=== PATIENT | male | born 1960 | race Hispanic/Latino ===

== ENCOUNTER 2017-04-16 19:14 | Emergency (ER) | payer OTHER ==
[2017-04-16 19:18] VITALS: BMI 32.5
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
[2017-04-16 22:17] VITALS: BP 141/81; PULSE 81; RESP 18; TEMP 97.9; O2SAT 97
--- NOTE | 2017-04-17 10:02 | RAD ---
PROCEDURE: Radiographs of the Right Shoulder HISTORY: shoulder pain COMPARISON: No prior. FINDINGS: BONES: No evidence of acute displaced fracture nor dislocation. 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 . SOFT TISSUES: Normal. OTHER FINDINGS: None. IMPRESSION: No evidence of acute fracture nor dislocation. DJD right acromioclavicular joint.
== END 2017-04-16 22:22 | disposition home or self-care (01) ==
LOC: ED 19:14
DX: M25.511 Pain in right shoulder (principal)
CPT/HCPCS: 73030; 96372; 99283; J1885

== ENCOUNTER 2017-04-19 12:56 | Emergency (ER) | payer OTHER ==
[2017-04-19 13:39] VITALS: RESP 18; TEMP 98; O2SAT 97; BMI 36.5
--- NOTE | 2017-04-19 13:45 | ED PDOC ---
Arrival/HPI <Enrique Angulo - Last Filed: 04/19/17 15:38> - General Historian: Patient <Deng Polanco - Last Filed: 04/19/17 15:51> - General Chief Complaint: Chest Pain Time Seen by Provider: 04/19/17 13:28 - History of Present Illness Narrative History of Present Illness (Text): 04/19/17 13:42 This patient is a 56yo M w/ no siginificant PMhx because he has no PMD; recently seen for shoulder sprain and discharged from the ER; is coming in with left sided chest pain for 2 days now. patient states that he just "feels off" since the pain started. Pain is located mid-axillary line, in a single point, and does not radiate anywhere. Denies nausea vomiting sweating or feeling of impending doom. 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 Denies any drug use, smoking, "eats very healthy and eats lots of fish". Denies VALENCIA, SOB, abdominal pain, N/V/D, dysuria/freq/urg, lower extremity swelling, decreased exercise tolerance. Admits to left sided chest pain, dull, non radiating. No PMD SurgHx: Previous Abdominal hernia repair in [place] Allergies: None Meds: Ibuprofen as needed for pain, no others FamHx: Mom 71 of cardiac issues; only child, all other aunts/uncles in good health States he is taking valium for "muscle spasms" as well. 04/19/17 13:47 (Enrique Angulo) Past Medical History - Infectious Disease Hx of Infectious Diseases: None - Tetanus Immunization Tetanus Immunization: Up to Date - Past Medical History Past Medical History: No Previous - Cardiac Hx Cardiac Disorders: No - Pulmonary Hx Respiratory Disorders: No - HEENT Hx HEENT Disorder: No - Renal Hx Renal Disorder: No - Endocrine/Metabolic Hx Endocrine Disorders: No - Hematological/Oncological Hx Blood Disorders: No - Integumentary Hx Dermatological Disorder: No - Musculoskeletal/Rheumatological Hx Musculoskeletal Disorders: Yes Other/Comment: bursitis - Psychiatric Hx Depression: No Hx Emotional Abuse: No Hx Physical Abuse: No Hx Substance Use: No - Past Surgical History Past Surgical History: No Previous - Anesthesia Hx Anesthesia: Yes Hx Anesthesia Reactions: No Hx Malignant Hyperthermia: No - Suicidal Assessment Feels Threatened In Home Enviroment: No <Enrique Angulo - Last Filed: 04/19/17 15:38> - Provider Review Nursing Documentation Reviewed: Yes <SherriDeng - Last Filed: 04/19/17 15:51> Family/Social History - Physician Review Nursing Documentation Reviewed: Yes Family/Social History: No Known Family HX Smoking Status: Never Smoked Hx Alcohol Use: Yes (wine) Hx Substance Use: No <Enrique Angulo - Last Filed: 04/19/17 15:38> - Physician Review Nursing Documentation Reviewed: Yes <SherriDeng - Last Filed: 04/19/17 15:51> Allergies/Home Meds <WalterSadiqhallieEnrique - Last Filed: 04/19/17 15:38> <SherriDeng - Last Filed: 04/19/17 15:51> Allergies/Adverse Reactions: Allergies Sulfa (Sulfonamide Antibiotics) Adverse Reaction (Verified 04/19/17 13:38) ANAPHYLAXIS Review of Systems - Review of Systems Constitutional: absent: Fatigue, Weight Change Eyes: absent: Vision Changes, Photophobia ENT: absent: Hearing Changes Respiratory: absent: SOB Cardiovascular: absent: Chest Pain Gastrointestinal: absent: Abdominal Pain Genitourinary Male: absent: Dysuria Musculoskeletal: absent: Arthralgias Skin: absent: Rash Neurological: absent: Headache Endocrine: absent: Diaphoresis, Polyuria Hemo/Lymphatic: absent: Adenopathy Psychiatric: absent: Anxiety <Enrique Angulo - Last Filed: 04/19/17 15:38> Physical Exam Temperature: Afebrile Blood Pressure: Hypertensive Pulse: Regular Respiratory Rate: Normal Appearance: Positive for: Well-Appearing, Non-Toxic, Comfortable Pain Distress: None Mental Status: Positive for: Alert and Oriented X 3 - Systems Exam Head: Present: Atraumatic Pupils: Present: PERRL Extroacular Muscles: Present: EOMI Conjunctiva: Present: Normal Mouth: Present: Moist Mucous Membranes Neck: Present: Normal Range of Motion Respiratory/Chest: Present: Clear to Auscultation, Good Air Exchange, Tender to Palpation (on the left axillary line ). No: Respiratory Distress, Accessory Muscle Use, Wheezes, Decreased Breath Sounds, Rales, Retracting, Rhonchi, Tachypneic Cardiovascular: Present: Regular Rate and Rhythm, Normal S1, S2. No: Murmurs Abdomen: Present: Normal Bowel Sounds. No: Tenderness, Distention Upper Extremity: Present: Normal Inspection. No: Cyanosis (patients right arm has limited ROM due to tendonitis) Lower Extremity: Present: Normal Inspection. No: Edema Neurological: Present: GCS=15, CN II-XII Intact, Speech Normal Skin: Present: Warm <Enrique Angulo - Last Filed: 04/19/17 15:38> Vital Signs Reviewed: Yes <Deng Polanco - Last Filed: 04/19/17 15:51> Vital Signs Temp Pulse Resp BP Pulse Ox 04/19/17 13:26 98 F 70 18 139/78 97 Medical Decision Making - Lab Interpretations I have reviewed the lab results: Yes <Enrique Angulo - Last Filed: 04/19/17 15:38> - Lab Interpretations I have reviewed the lab results: Yes - RAD Interpretation Projection Technician: Radiologist - EKG Interpretation Interpreted by ED Physician: Yes Type: 12 lead EKG <Deng Polanco - Last Filed: 04/19/17 15:51> ED Course and Treatment: 04/19/17 13:44 Most likely has HTN; hypertensive on previous visit and today as well Will order cardiac iso and labs, chest x-ray Aspirin 325 ordered and Nitro; will reassess after nitro EKG NSR w/ left atrial enlargement; no ST segment elevations/depressions, no T wave abnormalities DDx: ACS vs muscle sprain/spasm 04/19/17 14:34 patient is requesting valium for his muscle spasm as this seems to help him will order toradol for likely muscle spasm in the chest troponin negative CBC CMP WNL Patient is comfortably sitting in bed, ambulating without problem 04/19/17 14:52 Cardiac ezymes are normal patient continues to request valium for his muscle spasm The patient is stable for discharge he will be d/c on baclofen for muscle spasm, already has ibuprofen which he can take as indicated for muscle spasm advised to be careful with ibuprofen given risk of cardiac events and GI bleeding patient acknowledged risks and benefits of treatment Pt advised to come back to the ER for any worsening chest pain, extreme SOB. Encouraged to set up PCP here at the [facility] clinic as he does not have insurance currently. (Enrique Angulo) 04/19/17 14:49 Patient seen and examined with resident. He describes the pain as lasting for one second about 4 times in the past 3 days, not associated with exertion. EKG is normal with normal CE and CXR. As noted by resident, patient asking for valium script - will be given baclofen for muscle relaxation. Given negative workup in the ED, it has been explained to the patient the crucial need to follow up outpatient, which he says he will do - ok for d/c. (Deng Polanco) - Lab Interpretations Lab Results: 04/19/17 13:35 04/19/17 13:35 Lab Results 04/19/17 13:35: Sodium 141, Potassium 3.9, Chloride 107, Carbon Dioxide 26, Anion Gap 12, BUN 20, Creatinine 0.7, Est GFR ( Amer) > 60, Est GFR (Non- Af Amer) > 60, Random Glucose 91, Calcium 8.7, Phosphorus 2.6, Magnesium 2.1, Total Bilirubin 0.6, AST 25, ALT 27, Alkaline Phosphatase 63, Lactate Dehydrogenase 410, Total Creatine Kinase 112, Troponin I < 0.01, Total Protein 7.1, Albumin 3.9, Globulin 3.2, Albumin/Globulin Ratio 1.2, Lipase 43 04/19/17 13:35: WBC 6.2, RBC 4.39, Hgb 13.1 L, Hct 39.4 L, MCV 89.7, MCH 29.8, MCHC 33.2, RDW 13.0, Plt Count 221, MPV 10.0, Gran % 62.5, Lymph % (Auto) 28.3, [place] % (Auto) 7.4 H, Eos % (Auto) 1.5, Baso % (Auto) 0.3, Gran # 3.86, Lymph # 1.8, [place] # 0.5, Eos # 0.1, Baso # 0.02 - RAD Interpretation Radiology Orders: 04/19/17 13:45 CHEST PORTABLE [RAD] Stat - Medication Orders Current Medication Orders: Discontinued Medications Aspirin (Aspirin) 325 mg PO STAT STA Stop: 04/19/17 13:42 Last Admin: 04/19/17 13:47 Dose: 325 mg Ketorolac Tromethamine (Toradol) 30 mg IVP STAT STA Stop: 04/19/17 15:35 Nitroglycerin (Nitrostat Sl Tab) 0.3 mg SL STAT STA Stop: 04/19/17 13:42 Last Admin: 04/19/17 13:48 Dose: 0.3 mg <Enrique Angulo - Last Filed: 04/19/17 15:38> - PA / [employer]LE [employer]KER / Resident Statement MD/ has reviewed & agrees with the documentation as recorded. MD/DO has examined the patient and agrees with the treatment plan. - Scribe Statement The provider has reviewed the documentation as recorded by the Scribe <Deng Polanco - Last Filed: 04/19/17 15:51> - Scribe Statement 04/19/2017 Tracy Barton Provider Scribe Attestation: All medical record entries made by the Scribe were at my direction and personally dictated by me. I have reviewed the chart and agree that the record accurately reflects my personal performance of the history, physical exam, medical decision making, and the department course for this patient. I have also personally directed, reviewed, and agree with the discharge instructions and disposition. (Deng Polanco) Disposition/Present on Arrival - Present on Arrival Any Indicators Present on Arrival: No History of DVT/PE: No History of Uncontrolled Diabetes: No Urinary Catheter: No History of Decub. Ulcer: No History Surgical Site Infection Following: None - Disposition Have Diagnosis and Disposition been Completed?: Yes Disposition Time: 14:56 Patient Plan: Discharge <Enrique Angulo - Last Filed: 04/19/17 15:38> <Deng Polanco - Last Filed: 04/19/17 15:51> - Disposition Diagnosis: Muscle spasm Disposition: HOME/ ROUTINE Patient Problems: Current Active Problems Problem Status Onset Muscle spasm Acute Condition: FAIR Discharge Instructions (ExitCare): Muscle Spasm (ED) Prescriptions: Baclofen [Lioresal] 10 mg PO BID PRN #16 tab PRN Reason: Spasm Referrals: PCP,NO [Primary Care Provider] - Follow up with primary
[2017-04-19 14:16] LABS: ALB/GLOB RATIO 1.2 (1.1-1.8); ALBUMIN 3.9 g/dL (3.0-4.8); ALT/SGPT 27 U/L (7-56); AST/SGOT 25 U/L (15-59); BLOOD UREA NITROGEN 20 mg/dL (7-21); CALCIUM 8.7 mg/dL (8.4-10.5); GFR AFRICAN-AMERICAN > 60; GFR NON-AFRICAN AMERICAN > 60; LIPASE 43 U/L (23-300); MAGNESIUM 2.1 mg/dL (1.7-2.2)
[2017-04-19 14:20] LABS: BASO # 0.02 K/mm3 (0.0-2.0); BASO % 0.3 % (0.0-3.0); EOS # 0.1 (0.0-0.7); EOS % 1.5 % (1.5-5.0); GRAN # 3.86 (1.4-6.5); GRAN % 62.5 % (50.0-68.0); HEMOGLOBIN 13.1 gm/dL (14.0-18.0); LYMPH # 1.8 (1.2-3.4); LYMPH % 28.3 % (22.0-35.0); MEAN CELL VOLUME 89.7 fL (80.0-105.0); MEAN CORPUSCULAR HEMOGLOBIN 29.8 pg (25.0-35.0); MEAN CORPUSCULAR HGB CONC 33.2 g/dl (31.0-37.0); MONO # 0.5 (0.1-0.6); MONO % 7.4 % (1.0-6.0); PLATELET COUNT 221 10^3/uL (120.0-450.0); RBC 4.39 10^6/uL (3.5-6.1); WHITE BLOOD COUNT 6.2 10^3/ul (4.5-11.0)
[2017-04-19 14:29] LABS: TROPONIN I < 0.01 ng/mL
--- NOTE | 2017-04-19 14:35 | RAD ---
HISTORY: chest pain COMPARISON: No prior. FINDINGS: LUNGS: No active pulmonary disease. PLEURA: No significant pleural effusion identified, no pneumothorax apparent. CARDIOVASCULAR: Normal. OSSEOUS STRUCTURES: No significant abnormalities. VISUALIZED UPPER ABDOMEN: Normal. OTHER FINDINGS: None. IMPRESSION: No active disease.
[2017-04-19 16:19] VITALS: BP 136/88; PULSE 62
--- NOTE | 2017-04-19 19:00 | CARD ---
APPROVED REPORT EKG Measurement Heart [id number] CT [id number] <Conclusion> Normal sinus rhythm Possible Left atrial enlargement Borderline ECG
== END 2017-04-19 16:30 | disposition home or self-care (01) ==
LOC: ED 12:56
DX: R25.2 Cramp and spasm (principal)
CPT/HCPCS: 71010; 80053; 82550; 83615; 83690; 83735; 84100; 84484; 85025; 93005; 96374; 99285; J1885

== ENCOUNTER 2017-10-20 13:41 | Emergency (ER) | payer MEDICAID ==
[2017-10-20 13:41] VITALS: BMI 36.5
--- NOTE | 2017-10-20 14:15 | ED PDOC ---
Arrival/HPI - General Chief Complaint: Upper Extremity Problem/Injury Time Seen by Provider: 10/20/17 14:04 Historian: Patient - History of Present Illness Narrative History of Present Illness (Text): 10/20/17 14:11 A 56 year old male, whose past medical history includes hypertension and tendonitis, presents to the emergency department complaining of right shoulder pain since earlier today. Patient reports his pain began after doing some heavy lifting at work. He also reports palpitations, which have now fully resolved. Patient denies any other injuries, fever, chills, nausea, vomiting, abdominal pain, chest pain, shortness of breath or any other complaints. Time/Duration: Other (earlier today) Context: Work Past Medical History - Provider Review Nursing Documentation Reviewed: Yes - Infectious Disease Hx of Infectious Diseases: None - Tetanus Immunization Tetanus Immunization: Up to Date - Past Medical History Past Medical History: No Previous - Cardiac Hx Cardiac Disorders: No - Pulmonary Hx Respiratory Disorders: No - HEENT Hx HEENT Disorder: No - Renal Hx Renal Disorder: No - Endocrine/Metabolic Hx Endocrine Disorders: No - Hematological/Oncological Hx Blood Disorders: No - Integumentary Hx Dermatological Disorder: No - Musculoskeletal/Rheumatological Hx Musculoskeletal Disorders: Yes Other/Comment: bursitis - Psychiatric Hx Depression: No Hx Substance Use: No - Past Surgical History Past Surgical History: No Previous - Anesthesia Hx Anesthesia: Yes Hx Anesthesia Reactions: No Hx Malignant Hyperthermia: No - Suicidal Assessment Feels Threatened In Home Enviroment: No Family/Social History - Physician Review Nursing Documentation Reviewed: Yes Family/Social History: No Known Family HX Smoking Status: Never Smoked Hx Alcohol Use: Yes (wine) Hx Substance Use: No Allergies/Home Meds Allergies/Adverse Reactions: Allergies Sulfa (Sulfonamide Antibiotics) Adverse Reaction (Verified 10/03/17 13:52) ANAPHYLAXIS Home Medications: Home Meds Medication Instructions Recorded Confirmed Irbesartan [Avapro] 0 mg PO DAILY 10/20/17 10/20/17 Lisinopril [Zestril] 10 mg PO DAILY 10/20/17 10/20/17 Review of Systems - Physician Review All systems were reviewed & negative as marked: Yes - Review of Systems Constitutional: absent: Fevers, Night Sweats Respiratory: absent: SOB Cardiovascular: Palpitations (which has completely resolved). absent: Chest Pain Gastrointestinal: absent: Abdominal Pain, Nausea, Vomiting Musculoskeletal: Other (right shouler pain) Physical Exam Vital Signs Reviewed: Yes Vital Signs Temp Pulse Resp BP Pulse Ox 10/20/17 14:43 98.1 F 10/20/17 14:38 69 16 152/83 H 99 10/20/17 13:47 97.8 F 72 18 131/82 98 Temperature: Afebrile Blood Pressure: Normal Pulse: Regular Respiratory Rate: Normal Appearance: Positive for: Well-Appearing, Non-Toxic, Comfortable Pain Distress: None Mental Status: Positive for: Alert and Oriented X 3 - Systems Exam Head: Present: Atraumatic, Normocephalic Pupils: Present: PERRL Extroacular Muscles: Present: EOMI Conjunctiva: Present: Normal Mouth: Present: Moist Mucous Membranes Respiratory/Chest: Present: Clear to Auscultation, Good Air Exchange. No: Respiratory Distress, Accessory Muscle Use Cardiovascular: Present: Regular Rate and Rhythm, Normal S1, S2. No: Murmurs Upper Extremity: Present: Normal Inspection, Normal ROM (in right shoulder), NORMAL PULSES, Neurovascularly Intact. No: Cyanosis, Edema, Tenderness (in right shoulder), Swelling, Erythema, Temperature Abnormalties, Deformity Neurological: Present: GCS=15, CN II-XII Intact, Speech Normal Skin: Present: Warm, Dry, Normal Color. No: Rashes Psychiatric: Present: Alert, Oriented x 3, Normal Insight, Normal Concentration Medical Decision Making ED Course and Treatment: 10/20/17 14:11 Impression: A 56 year old male with right shoulder pain. Patient notes palpitations, which have now fully resolved. Plan: -- EKG -- Reassess and disposition Progress Notes: EKG shows NSR at [address]/T wave changes. Interpreted by me. 10/20/17 14:36 I have discussed the results and plan with the patient, who expresses understanding. Patient in agreement with plan to be discharged home. Patient is stable for discharge. Patient was instructed to follow up with physician or return if symptoms worsen or new concerning symptoms arise. 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 - Scribe Statement The provider has reviewed the documentation as recorded by the Ellaibe Madhavi Jones Provider Scribe Attestation: All medical record entries made by the Scribe were at my direction and personally dictated by me. I have reviewed the chart and agree that the record accurately reflects my personal performance of the history, physical exam, medical decision making, and the department course for this patient. I have also personally directed, reviewed, and agree with the discharge instructions and disposition. Disposition/Present on Arrival - Present on Arrival Any Indicators Present on Arrival: No History of DVT/PE: No History of Uncontrolled Diabetes: No Urinary Catheter: No History of Decub. Ulcer: No History Surgical Site Infection Following: None - Disposition Have Diagnosis and Disposition been Completed?: Yes Diagnosis: Trapezius muscle strain, Trapezius muscle spasm Disposition: HOME/ ROUTINE Disposition Time: 14:36 Patient Plan: Discharge Condition: GOOD Discharge Instructions (ExitCare): Muscle Spasm (ED) Additional Instructions: Ernst, Rest as much as possible. Ice the muscle spasm. Use the valium, but do not drink, drive, or work if you take the valium. Jeremiah- Dr. Paul Chiu Prescriptions: Diazepam [Valium] 2 mg PO TID #15 tablet Forms: [employer] (Kinyarwanda)
[2017-10-20 14:42] VITALS: BP 152/83; PULSE 69; RESP 16; O2SAT 99
[2017-10-20 14:43] VITALS: TEMP 98.1
--- NOTE | 2017-10-22 10:33 | CARD ---
APPROVED REPORT EKG Measurement Heart [id number] <Conclusion> Normal sinus rhythm Normal ECG
== END 2017-10-20 14:51 | disposition home or self-care (01) ==
LOC: ED 13:41
DX: S46.911A Strain of unspecified muscle, fascia and tendon at shoulder and upper arm level, right arm, initial encounter (principal); X50.0XXA Overexertion from strenuous movement or load, initial encounter; Y99.0 Civilian activity done for income or pay; I10 Essential (primary) hypertension

== ENCOUNTER 2017-12-16 16:38 | Emergency (ER) | payer MEDICAID, OTHER ==
[2017-12-16 17:18] VITALS: BP 144/84; PULSE 70; RESP 19; TEMP 98.1; O2SAT 98; BMI 33.9
--- NOTE | 2017-12-16 17:45 | ED PDOC ---
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 ago while at work, there were lots of dust everywhere, pt was wearing an eyeglass but something went into his left eye and felt very irritated since then; slightly teary/non-bleeding/no discharge; pt states no blurry/vision changes; no fever/chills/sweats, no cp/sob/palpitations , no abd pain, no n/v, no numbness/tingling, no urinary/bowel changes, no fall/ trauma/sick contact, no travel; pt is here for further eval; pt's without other complaints pt denied headaches Time/Duration: < week (3 days ago) Symptom Onset: Sudden Symptom Course: Unchanged Severity Level: 5 Activities at Onset: Rest Context: Home, Work Past Medical History - Provider Review Nursing Documentation Reviewed: Yes - Travel History Have you recently traveled outside [place] w/in the past 3 mons?: No - Past History Past History: No Previous - Infectious Disease Hx of Infectious Diseases: None - Tetanus Immunization Tetanus Immunization: Up to Date - Past Medical History Past Medical History: No Previous - Cardiac Hx Cardiac Disorders: No - Pulmonary Hx Respiratory Disorders: No - HEENT Hx HEENT Disorder: No - Renal Hx Renal Disorder: No - Endocrine/Metabolic Hx Endocrine Disorders: No - Hematological/Oncological Hx Blood Disorders: No - Integumentary Hx Dermatological Disorder: No - Musculoskeletal/Rheumatological Hx Musculoskeletal Disorders: Yes Other/Comment: bursitis - Psychiatric Hx Depression: No Hx Substance Use: No - Past Surgical History Past Surgical History: No Previous - Anesthesia Hx Anesthesia: Yes Hx Anesthesia Reactions: No Hx Malignant Hyperthermia: No - Suicidal Assessment Feels Threatened In Home Enviroment: No Family/Social History - Physician Review Nursing Documentation Reviewed: Yes Family/Social History: No Known Family HX Smoking Status: Never Smoked Hx Alcohol Use: Yes (wine) Hx Substance Use: No Hx Substance Use Treatment: No Allergies/Home Meds Allergies/Adverse Reactions: Allergies Sulfa (Sulfonamide Antibiotics) Adverse Reaction (Verified 12/16/17 17:07) ANAPHYLAXIS Home Medications: Home Meds Medication Instructions Recorded Confirmed Irbesartan [Avapro] 0 mg PO DAILY 10/20/17 12/16/17 Lisinopril [Zestril] 10 mg PO DAILY 10/20/17 12/16/17 Enalapril Maleate [Vasotec] 10 mg DAILY 10/25/17 12/16/17 Review of Systems - Review of Systems Constitutional: Normal Eyes: Eye Pain. absent: Vision Changes, Photophobia ENT: Normal Respiratory: Normal Cardiovascular: Normal Gastrointestinal: Normal Genitourinary Male: Normal Musculoskeletal: Normal Skin: Normal Neurological: Normal Endocrine: Normal Hemo/Lymphatic: Normal Psychiatric: Normal Physical Exam Vital Signs Reviewed: Yes Vital Signs Temp Pulse Resp BP Pulse Ox 12/16/17 17:08 98.1 F 70 19 144/84 98 12/16/17 17:06 98.1 F 70 18 144/84 97 Temperature: Afebrile Blood Pressure: Hypertensive (borderline) Pulse: Regular Respiratory Rate: Normal Appearance: Positive for: Well-Appearing, Non-Toxic, Uncomfortable Pain Distress: None Mental Status: Positive for: Alert and Oriented X 3 - Systems Exam Head: Present: Atraumatic, Normocephalic Pupils: Present: PERRL, Other (no nystagmus, no photophobia, sclera anicteric/ not injected, no gross tearing/discharge/bleeding noted; no masses/FB noted; Fundoscopic exam: WNL, no acute papilledema; Fluroescin stain: NO UPTAKE is noted b/l; pt is wearing eyeglasses Visual acuity (L 20/25, R 20/25, both 20/25) ; visual field intact b/l) Extroacular Muscles: Present: EOMI Conjunctiva: Present: Normal Ears: Present: Normal Mouth: Present: Moist Mucous Membranes, Other (intact dentitions, no drooling/ stridor, no dysphonia) Pharnyx: Present: Normal, Other (uvula/tongue are midline) Nose (External): Present: Atraumatic Nose (Internal): Present: Normal Inspection Neck: Present: Normal Range of Motion, Trachea Midline, Other (no midline tenderness, no step off, no meningeal signs). No: MIDLINE TENDERNESS Respiratory/Chest: Present: Clear to Auscultation, Good Air Exchange. No: Respiratory Distress Cardiovascular: Present: Regular Rate and Rhythm, Normal S1, S2. No: Murmurs Abdomen: Present: Normal Bowel Sounds, Other (well nourished male) Back: Present: Normal Inspection. No: Midline Tenderness Upper Extremity: Present: Normal Inspection, Normal ROM, NORMAL PULSES, Neurovascularly Intact, Capillary Refill < 2s Lower Extremity: Present: Normal Inspection, NORMAL PULSES, Normal ROM, Neurovascularly Intact, Capillary Refill < 2 s Neurological: Present: GCS=15, CN II-XII Intact, Speech Normal Skin: Present: Warm, Normal Color Psychiatric: Present: Alert, Oriented x 3 Medical Decision Making ED Course and Treatment: 12/16/17 17:43 Impression: left eye pain/irritation x 3 days i have consider all the differential diagnosis regarding pt's chief medical complaints/clinical findings, including but are not limited to: left eye pain A/P: left eye pain - visual acuity - observe - supportive care 12/16/17 18:00 pt felt improved pt is made aware of his medical results pt is encouraged wearing eye protective gear when at work pt will f/u as directed pt will be discharged home Re-evaluation Time: 18:00 Reassessment Condition: Improved Disposition/Present on Arrival - Present on Arrival Any Indicators Present on Arrival: No History of DVT/PE: No History of Uncontrolled Diabetes: No Urinary Catheter: No History of Decub. Ulcer: No History Surgical Site Infection Following: None - Disposition Have Diagnosis and Disposition been Completed?: Yes Diagnosis: Left eye pain Disposition: HOME/ ROUTINE Disposition Time: 18:00 Patient Plan: Discharge Condition: STABLE Discharge Instructions (ExitCare): Artificial Tears Print Language: CITIZEN OF [place] Additional Instructions: Make sure to see your doctor in 1-2 days DRINK PLENTY OF FLUIDS MAKE SURE TO WEAR safety goggle when you are at work take your medications as prescribed RETURN TO ED IF worse pain, cant breath, persistent vomiting, high fever >101- 102 for hours, altered behavior, unable to urinate, heavy/persistent bleeding, passing out, chest pain, or other medical emergencies Prescriptions: Glycerin/Propylene Glycol [Artificial Tears Drops] 2 ml OS TID PRN #1 bottle PRN Reason: eye irritation Referrals: Ramesh Aviles MD [Staff Provider] - Follow up with primary Forms: [employer] (Czech)
== END 2017-12-16 18:07 | disposition home or self-care (01) ==
LOC: ED 16:38
DX: H57.12 Ocular pain, left eye (principal)

== ENCOUNTER 2018-01-02 21:46 | Emergency (ER) | payer SELFPAY ==
[2018-01-02 21:47] VITALS: BMI 36.5
[2018-01-02 22:25] VITALS: TEMP 98.7; O2SAT 99
--- NOTE | 2018-01-02 23:12 | ED PDOC ---
Arrival/HPI - General Chief Complaint: Male Genitourinary Time Seen by Provider: 01/02/18 22:10 Historian: Patient - History of Present Illness Narrative History of Present Illness (Text): 01/02/18 23:09 Pt is a 57 year old male who presents with a concern that he may have contracted an STD after receiving oral sex from a stranger 2 days ago. Denies dysurua, frequency of voiding, penile discharge or irritation, fever, cp, sob, n /v/d, back pain or any other complaints. 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) Past Medical History - Provider Review Nursing Documentation Reviewed: Yes - Travel History Have you recently traveled outside [place] w/in the past 3 mons?: No - Past History Past History: No Previous - Infectious Disease Hx of Infectious Diseases: None - Tetanus Immunization Tetanus Immunization: Up to Date - Past Medical History Past Medical History: No Previous - Cardiac Hx Cardiac Disorders: No - Pulmonary Hx Respiratory Disorders: No - HEENT Hx HEENT Disorder: No - Renal Hx Renal Disorder: No - Endocrine/Metabolic Hx Endocrine Disorders: No - Hematological/Oncological Hx Blood Disorders: No - Integumentary Hx Dermatological Disorder: No - Musculoskeletal/Rheumatological Hx Musculoskeletal Disorders: Yes Other/Comment: bursitis - Psychiatric Hx Depression: No Hx Substance Use: No - Past Surgical History Past Surgical History: No Previous - Anesthesia Hx Anesthesia: Yes Hx Anesthesia Reactions: No Hx Malignant Hyperthermia: No - Suicidal Assessment Feels Threatened In Home Enviroment: No Family/Social History - Physician Review Nursing Documentation Reviewed: Yes Family/Social History: No Known Family HX Smoking Status: Never Smoked Hx Alcohol Use: Yes (wine) Hx Substance Use: No Hx Substance Use Treatment: No Allergies/Home Meds Allergies/Adverse Reactions: Allergies Sulfa (Sulfonamide Antibiotics) Adverse Reaction (Verified 12/16/17 17:07) ANAPHYLAXIS Home Medications: Home Meds Medication Instructions Recorded Confirmed Irbesartan [Avapro] 0 mg PO DAILY 10/20/17 01/02/18 Lisinopril [Zestril] 10 mg PO DAILY 10/20/17 01/02/18 Enalapril Maleate [Vasotec] 10 mg DAILY 10/25/17 01/02/18 Review of Systems - Physician Review All systems were reviewed & negative as marked: Yes - Review of Systems Constitutional: Normal Eyes: Normal ENT: Normal Respiratory: Normal Cardiovascular: Normal Gastrointestinal: Normal Genitourinary Male: Normal Musculoskeletal: Normal Skin: Normal Neurological: Normal Endocrine: Normal Hemo/Lymphatic: Normal Psychiatric: Normal Physical Exam Vital Signs Reviewed: Yes Vital Signs Temp Pulse Resp BP Pulse Ox 01/03/18 00:00 65 18 135/78 99 01/02/18 22:17 98.7 F 62 20 161/92 H 99 Temperature: Afebrile Blood Pressure: Normal Pulse: Regular Respiratory Rate: Normal Appearance: Positive for: Well-Appearing, Non-Toxic, Comfortable Pain Distress: None Mental Status: Positive for: Alert and Oriented X 3 - Systems Exam Head: Present: Atraumatic, Normocephalic Pupils: Present: PERRL Extroacular Muscles: Present: EOMI Conjunctiva: Present: Normal Mouth: Present: Moist Mucous Membranes Neck: Present: Normal Range of Motion Respiratory/Chest: Present: Clear to Auscultation, Good Air Exchange. No: Respiratory Distress, Accessory Muscle Use Cardiovascular: Present: Regular Rate and Rhythm, Normal S1, S2. No: Murmurs Abdomen: No: Tenderness, Distention, Peritoneal Signs Back: Present: Normal Inspection Upper Extremity: Present: Normal Inspection. No: Cyanosis, Edema Lower Extremity: Present: Normal Inspection. No: Edema Neurological: Present: GCS=15, CN II-XII Intact, Speech Normal Skin: Present: Warm, Dry, Normal Color. No: Rashes Psychiatric: Present: Alert, Oriented x 3, Normal Insight, Normal Concentration Medical Decision Making ED Course and Treatment: 01/02/18 23:11 Impression Pt is a 57 year old male who presents with a concern that he may have contracted an STD after receiving oral sex from a stranger 2 days ago. No findings on exam; pt does not want ppx treatment; will wait until cx is done Plan UA to r/o UTI, chlamydia and GC assess and dispo Discussed UA findings, advised to get prophylactic tx but pt declined No further tx req'd at this time VSS on dc - Lab Interpretations Lab Results: Lab Results 01/02/18 22:20: Urine Color Colorless, Urine Appearance Clear, Urine pH 7.0, Ur Specific [place] <= 1.005, Urine Protein Negative, Urine Glucose (UA) Negative, Urine Ketones Negative, Urine Blood Negative, Urine Nitrate Negative, Urine Bilirubin Negative, Urine Urobilinogen 0.2, Ur Leukocyte Esterase Negative I have reviewed the lab results: Yes Interpretation: All labs normal Disposition/Present on Arrival - Present on Arrival Any Indicators Present on Arrival: Yes History of DVT/PE: No History of Uncontrolled Diabetes: No Urinary Catheter: No History of Decub. Ulcer: No History Surgical Site Infection Following: None - Disposition Have Diagnosis and Disposition been Completed?: Yes Diagnosis: Possible exposure to STD Disposition: HOME/ ROUTINE Disposition Time: 23:59 Patient Plan: Discharge Condition: GOOD Discharge Instructions (ExitCare): Screening for Sexually Transmitted Infections Additional Instructions: We will call you if the urine culture is positive Follow up with your Primary doctor and practice safe sex. Referrals: PCP,NO [Primary Care Provider] - Follow up with primary Forms: [employer] (Bengali)
[2018-01-02 23:29] LABS: URINE BILIRUBIN NEGATIVE (NEGATIVE); URINE BLOOD NEGATIVE (NEGATIVE); URINE GLUCOSE (UA) NEGATIVE (NEGATIVE); URINE LEUKOCYTE ESTERASE NEGATIVE Leu/uL (NEGATIVE); URINE PROTEIN NEGATIVE mg/dL (<30 mg/dL); URINE UROBILINOGEN 0.2 E.U./dL (<1 E.U./dL)
[2018-01-02 23:33] LABS: URINE APPEARANCE CLEAR (CLEAR)
[2018-01-02 23:34] LABS: URINE COLOR COLORLESS (YELLOW)
[2018-01-03 03:33] VITALS: BP 135/78; PULSE 65; RESP 18
== END 2018-01-03 00:10 | disposition home or self-care (01) ==
LOC: ED 21:46
DX: Z20.2 Contact with and (suspected) exposure to infections with a predominantly sexual mode of transmission (principal)

== ENCOUNTER 2018-02-07 15:12 | Emergency (ER) | payer SELFPAY ==
[2018-02-07 15:13] VITALS: BMI 36.5
== END 2018-02-07 15:54 | disposition left against medical advice (07) ==
LOC: ED 15:12
DX: Z02.89 Encounter for other administrative examinations (principal); K46.9 Unspecified abdominal hernia without obstruction or gangrene

== ENCOUNTER 2018-06-07 17:28 | Emergency (ER) | payer SELFPAY ==
[2018-06-07 17:36] VITALS: BMI 35.4
[2018-06-07] MEDS ORDERED: Oxycodone/Acetaminophen 5/325 mg Tab PO STA (17:54)
--- NOTE | 2018-06-07 17:54 | ED PDOC ---
Arrival/HPI - General Chief Complaint: Lower Extremity Problem/Injury Time Seen by Provider: 06/07/18 17:44 Historian: Patient - History of Present Illness Narrative History of Present Illness (Text): 06/07/18 17:50 57 y/o male, no significant pmh, allergic to sulfa, c/o lt. anterior tyler injury s/p hit and fall on the concrete block about 1 hour ago. Pt. stated that he was walking, tripped and fall on the brick edge against the anterior proximal tibial shaft, able to bear weight and walking, no numbness or tingling , no rash, no other medical or psychological complaints. Past Medical History - Provider Review Nursing Documentation Reviewed: Yes - Past History Past History: No Previous - Infectious Disease Hx of Infectious Diseases: None - Tetanus Immunization Tetanus Immunization: Up to Date - Past Medical History Past Medical History: No Previous - Cardiac Hx Cardiac Disorders: No - Pulmonary Hx Respiratory Disorders: No - Neurological Hx Neurological Disorder: No - HEENT Hx HEENT Disorder: No - Renal Hx Renal Disorder: No - Endocrine/Metabolic Hx Endocrine Disorders: No - Hematological/Oncological Hx Blood Disorders: No - Integumentary Hx Dermatological Disorder: No - Musculoskeletal/Rheumatological Hx Musculoskeletal Disorders: Yes Other/Comment: bursitis - Gastrointestinal Hx Gastrointestinal Disorders: No - Genitourinary/Gynecological Hx Genitourinary Disorders: No - Psychiatric Hx Psychophysiologic Disorder: No Hx Substance Use: No - Past Surgical History Past Surgical History: No Previous - Anesthesia Hx Anesthesia: Yes Hx Anesthesia Reactions: No Hx Malignant Hyperthermia: No - Suicidal Assessment Feels Threatened In Home Enviroment: No Family/Social History - Physician Review Nursing Documentation Reviewed: Yes Family/Social History: Unknown Family HX Smoking Status: Never Smoked Hx Alcohol Use: Yes (wine) Hx Substance Use: No Hx Substance Use Treatment: No Allergies/Home Meds Allergies/Adverse Reactions: Allergies Sulfa (Sulfonamide Antibiotics) Adverse Reaction (Verified 06/07/18 17:36) ANAPHYLAXIS Review of Systems - Review of Systems Constitutional: absent: Fatigue, Fevers Eyes: absent: Vision Changes ENT: absent: Hearing Changes Respiratory: absent: SOB, Cough Cardiovascular: absent: Chest Pain Gastrointestinal: absent: Abdominal Pain, Nausea, Vomiting Musculoskeletal: Myalgias. absent: Arthralgias, Back Pain, Neck Pain, Joint Swelling Skin: absent: Rash, Pruritis, Skin Lesions Psychiatric: absent: Anxiety, Depression, Suicidal Ideation Physical Exam Vital Signs Reviewed: Yes Vital Signs Temp Pulse Resp BP Pulse Ox 06/07/18 19:08 72 18 155/88 H 100 06/07/18 17:37 98.3 F 68 18 165/97 H 95 Temperature: Afebrile Blood Pressure: Hypertensive Pulse: Regular Respiratory Rate: Normal Appearance: Positive for: Well-Appearing, Non-Toxic, Comfortable Pain Distress: Moderate Mental Status: Positive for: Alert and Oriented X 3 - Systems Exam Head: Present: Atraumatic, Normocephalic Pupils: Present: PERRL Extroacular Muscles: Present: EOMI Conjunctiva: Present: Normal Mouth: Present: Moist Mucous Membranes Neck: Present: Normal Range of Motion Respiratory/Chest: Present: Clear to Auscultation, Good Air Exchange. No: Respiratory Distress, Accessory Muscle Use Cardiovascular: Present: Regular Rate and Rhythm, Normal S1, S2. No: Murmurs Abdomen: No: Tenderness, Distention, Peritoneal Signs Back: Present: Normal Inspection Upper Extremity: Present: Normal Inspection. No: Cyanosis, Edema Lower Extremity: Present: Normal Inspection, Other (LLE: +ttp and swelling with hematoma approx. [id number] noted with no abrasion or laceration, no skin tightening, no signs of compartment syndrome, FROM without limitation, sensation intact, motor 5/5, neurovascular intact, +DPPT pulses. ). No: Edema Neurological: Present: GCS=15, CN II-XII Intact, Speech Normal Skin: Present: Warm, Dry, Normal Color. No: Rashes Psychiatric: Present: Alert, Oriented x 3, Normal Insight, Normal Concentration Medical Decision Making ED Course and Treatment: 06/07/18 17:56 -Percocet -xray -rufino wrap with ice pack -Observe and reassess 06/07/18 18:59 -Tibia/fibula xray show no fracture or dislocation. -Rufino wrap applied by me with neurovascular intact, neurovascular intact, no signs of compartment syndromel, refused crutches and feels better which he refused percocet. -Discharge home with tylenol, rufino wrap, cane, ice compression, elevation, follow up with your own pmd and orthopedic within 2 days, return to the ER for any new or worsening signs or symptoms. - RAD Interpretation Radiology Orders: 09/05/18 17:50 TIBIA FIBULA LT FALL PROTOCOL [RAD] Stat unremarkable of the lt. tibia/fibula Grading Supervisor: Radiologist - Medication Orders Current Medication Orders: Discontinued Medications Oxycodone/Acetaminophen (Percocet 5/325 Mg Tab) 1 tab PO STAT STA Stop: 06/07/18 17:55 Last Admin: 06/07/18 18:45 Dose: 1 tab MAR Pain Assessment Document 06/07/18 18:45 ROSIO (Rec: 06/07/18 18:55 ROSIO [id number]) Pain Reassessment Is this a pain reassessment? No Sleep Is patient sleeping during reassessment? No Presence of Pain Presence of Pain Yes Pain Scale Used Pain Scale Used Numeric - PA / CAM MILLING MACHINE OPERATOR / Resident Statement MD/DO has reviewed & agrees with the documentation as recorded. Disposition/Present on Arrival - Present on Arrival Any Indicators Present on Arrival: No History of DVT/PE: No History of Uncontrolled Diabetes: No Urinary Catheter: No History of Decub. Ulcer: No History Surgical Site Infection Following: None - Disposition Have Diagnosis and Disposition been Completed?: Yes Diagnosis: Contusion of leg, Leg injury Disposition: HOME/ ROUTINE Disposition Time: 19:00 Patient Plan: Discharge Condition: IMPROVED Additional Instructions: -Discharge home with tylenol, rufino wrap, cane, ice compression, elevation, follow up with your own pmd and orthopedic within 2 days, return to the ER for any new or worsening signs or symptoms. Prescriptions: Acetaminophen [Pain Relief] 500 mg PO QID PRN #30 tablet PRN Reason: Other Referrals: Lj Burris MD [Staff Provider] - Follow up with primary Forms: [employer] (Serbian), WORK NOTE
[2018-06-07 18:24] VITALS: RESP 18; TEMP 98.3
[2018-06-07 19:37] VITALS: BP 155/88; PULSE 72; O2SAT 100
--- NOTE | 2018-06-08 10:35 | RAD ---
Date of service: 06/07/2018 PROCEDURE: Radiographs of the left tibia and fibula. HISTORY: lt. tibia anterior tyler injury, swelling, r/o frac COMPARISON: None available. TECHNIQUE: Frontal and lateral views obtained. FINDINGS: BONES: No fracture or destructive lesion. JOINT SPACES: Unremarkable. OTHER FINDINGS: None. IMPRESSION: Unremarkable radiographs of the left tibia and fibula.
== END 2018-06-07 19:08 | disposition home or self-care (01) ==
LOC: ED 17:28
DX: S80.12XA Contusion of left lower leg, initial encounter (principal); W01.0XXA Fall on same level from slipping, tripping and stumbling without subsequent striking against object, initial encounter; Z88.2 Allergy status to sulfonamides

== ENCOUNTER 2018-09-22 11:17 | Emergency (ER) | payer SELFPAY ==
[2018-09-22 11:17] VITALS: BMI 35.4
[2018-09-22 11:52] VITALS: TEMP 98
--- NOTE | 2018-09-22 12:06 | ED PDOC ---
Arrival/HPI - General Chief Complaint: Psychiatric Evaluation Time Seen by Provider: 09/22/18 11:38 Historian: Patient - History of Present Illness Narrative History of Present Illness (Text): 09/22/18 12:03 57yo male with pmhx of anxiety present to ED requesting Klonopin prescription. States he recently relocated to [place] from [place] and couldn't see his Doctor any more so he came to ED for prescription refill. States he has been getting intermittent anxiety because of personal issues. He however denies chest pain, SOB, SI/HI, hallucination, any other complaint. Past Medical History - Provider Review Nursing Documentation Reviewed: Yes - Past History Past History: No Previous - Infectious Disease Hx of Infectious Diseases: None - Tetanus Immunization Tetanus Immunization: Up to Date - Past Medical History Past Medical History: No Previous - Cardiac Hx Cardiac Disorders: No - Pulmonary Hx Respiratory Disorders: No - Neurological Hx Neurological Disorder: No - HEENT Hx HEENT Disorder: No - Renal Hx Renal Disorder: No - Endocrine/Metabolic Hx Endocrine Disorders: No - Hematological/Oncological Hx Blood Disorders: No - Integumentary Hx Dermatological Disorder: No - Musculoskeletal/Rheumatological Hx Musculoskeletal Disorders: Yes Other/Comment: bursitis - Gastrointestinal Hx Gastrointestinal Disorders: No - Genitourinary/Gynecological Hx Genitourinary Disorders: No - Psychiatric Hx Depression: No Hx Substance Use: No - Past Surgical History Past Surgical History: No Previous - Anesthesia Hx Anesthesia: Yes Hx Anesthesia Reactions: No Hx Malignant Hyperthermia: No - Suicidal Assessment Feels Threatened In Home Enviroment: No Family/Social History - Physician Review Nursing Documentation Reviewed: Yes Family/Social History: Unknown Family HX Smoking Status: Never Smoked Hx Alcohol Use: Yes (wine) Hx Substance Use: No Hx Substance Use Treatment: No Allergies/Home Meds Allergies/Adverse Reactions: Allergies Sulfa (Sulfonamide Antibiotics) Adverse Reaction (Verified 06/07/18 17:36) ANAPHYLAXIS Review of Systems - Physician Review All systems were reviewed & negative as marked: Yes - Review of Systems Constitutional: Normal Eyes: Normal ENT: Normal Respiratory: Normal Cardiovascular: Normal Gastrointestinal: Normal Genitourinary Male: Normal Musculoskeletal: Normal Skin: Normal Neurological: Normal Endocrine: Normal Hemo/Lymphatic: Normal Psychiatric: Anxiety Physical Exam Vital Signs Reviewed: Yes Vital Signs Temp Pulse Resp BP Pulse Ox 09/22/18 11:18 98 F 74 18 147/99 H 97 Temperature: Afebrile Blood Pressure: Normal Pulse: Regular Respiratory Rate: Normal Appearance: Positive for: Well-Appearing, Non-Toxic, Comfortable Pain Distress: None Mental Status: Positive for: Alert and Oriented X 3 - Systems Exam Head: Present: Atraumatic, Normocephalic Pupils: Present: PERRL Extroacular Muscles: Present: EOMI Conjunctiva: Present: Normal Mouth: Present: Moist Mucous Membranes Neck: Present: Normal Range of Motion Respiratory/Chest: Present: Clear to Auscultation, Good Air Exchange. No: Respi ratory Distress, Accessory Muscle Use Cardiovascular: Present: Regular Rate and Rhythm, Normal S1, S2. No: Murmurs Abdomen: No: Tenderness, Distention, Peritoneal Signs Back: Present: Normal Inspection Upper Extremity: Present: Normal Inspection. No: Cyanosis, Edema Lower Extremity: Present: Normal Inspection. No: Edema Neurological: Present: GCS=15, CN II-XII Intact, Speech Normal Skin: Present: Warm, Dry, Normal Color. No: Rashes Psychiatric: Present: Alert, Oriented x 3, Normal Insight, Normal Concentration Medical Decision Making ED Course and Treatment: 09/22/18 17:16 PT presented to ED for stated history. He was in no distress. He was given a tab of Klonopin in ED and was advised to f/u with outpt mental health for his rx. He verbalized understanding that he cannot get anxiolytic rx from the ED. Disposition/Present on Arrival - Present on Arrival Any Indicators Present on Arrival: No History of DVT/PE: No History of Uncontrolled Diabetes: No Urinary Catheter: No History of Decub. Ulcer: No History Surgical Site Infection Following: None - Disposition Have Diagnosis and Disposition been Completed?: Yes Diagnosis: Anxiety Disposition: HOME/ ROUTINE Disposition Time: 12:10 Patient Plan: Discharge Condition: STABLE Discharge Instructions (ExitCare): Anxiety, Adult (DC) Additional Instructions: Follow up with outpt mental health Return to ED fro any new or worsening symptoms Referrals: [facility] [Outside] - Follow up with primary Forms: [employer] (Cambodian)
[2018-09-22 12:58] VITALS: BP 151/80; PULSE 80; RESP 16; O2SAT 98
== END 2018-09-22 12:50 | disposition home or self-care (01) ==
LOC: ED 11:17
DX: F41.9 Anxiety disorder, unspecified (principal)

== ENCOUNTER 2018-09-25 00:55 | Emergency (ER) | payer SELFPAY ==
[2018-09-25 00:56] VITALS: BMI 35.4
[2018-09-25 01:07] VITALS: RESP 18
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
[2018-09-25 01:33] VITALS: TEMP 98.1
[2018-09-25 03:34] VITALS: BP 147/84; PULSE 62; O2SAT 99
== END 2018-09-25 03:30 | disposition home or self-care (01) ==
LOC: ED 00:55
DX: F41.9 Anxiety disorder, unspecified (principal)

== ENCOUNTER 2019-01-01 20:57 | Emergency (ER) | payer MEDICAID ==
[2019-01-01 21:12] VITALS: BMI 33.9
[2019-01-01 21:13] VITALS: TEMP 98.6
[2019-01-01] MEDS ORDERED: Albuterol-Ipratrop 3 mg / 0.5 (3 ml) UD IH STA (21:57)
--- NOTE | 2019-01-01 22:47 | ED PDOC ---
Arrival/HPI <Charly Cain - Last Filed: 01/01/19 22:52> - General Historian: Patient - History of Present Illness Narrative History of Present Illness (Text): 01/01/19 22:34 58 year old male, with past medical history of HTN, presents to the emergency department with a productive cough with sore throat, for 1 week. Patient denies any recent travel. Patient denies any fever, chills, shortness of breath, chest pain, back pain, abdominal pain, nausea, vomiting, or any other complaints. Time/Duration: 1 week Symptom Onset: Gradual Symptom Course: Unchanged Activities at Onset: Light Context: Home <Angelika Davenport PA-C - Last Filed: 01/01/19 23:19> - General Chief Complaint: Cough, Cold, Congestion Time Seen by Provider: 01/01/19 21:29 Past Medical History - Provider Review Nursing Documentation Reviewed: Yes - Past History Past History: No Previous - Infectious Disease Hx of Infectious Diseases: None - Tetanus Immunization Tetanus Immunization: Up to Date - Past Medical History Past Medical History: No Previous - Cardiac Hx Cardiac Disorders: No - Pulmonary Hx Respiratory Disorders: No - Neurological Hx Neurological Disorder: No - HEENT Hx HEENT Disorder: No - Renal Hx Renal Disorder: No - Endocrine/Metabolic Hx Endocrine Disorders: No - Hematological/Oncological Hx Blood Disorders: No - Integumentary Hx Dermatological Disorder: No - Musculoskeletal/Rheumatological Hx Musculoskeletal Disorders: Yes Other/Comment: bursitis - Gastrointestinal Hx Gastrointestinal Disorders: No - Genitourinary/Gynecological Hx Genitourinary Disorders: No - Psychiatric Hx Depression: No Hx Substance Use: No - Past Surgical History Past Surgical History: No Previous - Anesthesia Hx Anesthesia: Yes Hx Anesthesia Reactions: No Hx Malignant Hyperthermia: No - Suicidal Assessment Feels Threatened In Home Enviroment: No <Angelika Davenport PA-C - Last Filed: 01/01/19 23:19> Family/Social History - Physician Review Nursing Documentation Reviewed: Yes Family/Social History: No Known Family HX Smoking Status: Never Smoked Hx Alcohol Use: Yes (wine) Frequency of alcohol use: Few days per week Hx Substance Use: No Hx Substance Use Treatment: No <Angelika Davenport PA-C - Last Filed: 01/01/19 23:19> Allergies/Home Meds <Charly Cain - Last Filed: 01/01/19 22:52> <Angelika Davenport PA-C - Last Filed: 01/01/19 23:19> Allergies/Adverse Reactions: Allergies Sulfa (Sulfonamide Antibiotics) Adverse Reaction (Verified 01/01/19 21:12) ANAPHYLAXIS Review of Systems - Physician Review All systems were reviewed & negative as marked: Yes - Review of Systems Constitutional: absent: Fatigue, Fevers, Night Sweats ENT: Sore Throat Respiratory: Cough, Sputum. absent: SOB Gastrointestinal: absent: Abdominal Pain, Nausea, Vomiting Musculoskeletal: absent: Arthralgias, Back Pain, Neck Pain Skin: absent: Rash, Skin Lesions Neurological: absent: Headache, Dizziness <Angelika Davenport PA-C - Last Filed: 01/01/19 23:19> Physical Exam Vital Signs Temp Pulse Resp BP Pulse Ox 01/01/19 21:12 98.6 F 65 18 158/91 H 95 <Charly Cain - Last Filed: 01/01/19 22:52> Vital Signs Reviewed: Yes Vital Signs Temp Pulse Resp BP Pulse Ox 01/01/19 21:12 98.6 F 65 18 158/91 H 95 Temperature: Afebrile Blood Pressure: Hypertensive Pulse: Regular Respiratory Rate: Normal Appearance: Positive for: Well-Appearing, Non-Toxic, Comfortable Pain Distress: None Mental Status: Positive for: Alert and Oriented X 3 - Systems Exam Head: Present: Atraumatic, Normocephalic Pupils: Present: PERRL Extroacular Muscles: Present: EOMI Conjunctiva: Present: Normal Mouth: Present: Moist Mucous Membranes Pharnyx: Present: Normal. No: ERYTHEMA, EXUDATE Neck: Present: Normal Range of Motion. No: Meningeal Signs, Lymphadenopathy Respiratory/Chest: Present: Clear to Auscultation, Good Air Exchange, Wheezes (Slight Expiratory wheeze). No: Respiratory Distress, Accessory Muscle Use, Decreased Breath Sounds, Rales, Rhonchi Cardiovascular: Present: Regular Rate and Rhythm, Normal S1, S2. No: Murmurs Abdomen: No: Tenderness, Distention, Peritoneal Signs Back: Present: Normal Inspection Upper Extremity: Present: Normal Inspection. No: Cyanosis, Edema Lower Extremity: Present: Normal Inspection. No: Edema Neurological: Present: GCS=15, CN II-XII Intact, Speech Normal Skin: Present: Warm, Dry, Normal Color. No: Rashes Psychiatric: Present: Alert, Oriented x 3, Normal Insight, Normal Concentration <Angelika Davenport PA-C - Last Filed: 01/01/19 23:19> Medical Decision Making - RAD Interpretation Radiology Orders: 01/01/19 21:57 CHEST TWO VIEWS (PA/LAT) [RAD] Stat - Medication Orders Current Medication Orders: Discontinued Medications Albuterol/Ipratropium (Duoneb 3 Mg/0.5 Mg (3 Ml) Ud) 3 ml IH STAT STA Stop: 01/01/19 21:58 Last Admin: 01/01/19 22:12 Dose: 3 ml <Charly Cain - Last Filed: 01/01/19 22:52> ED Course and Treatment: 01/01/19 22:49 Impression: 58 year old male presents with productive cough. Plan: -- Chest X-ray -- Duoneb -- Reassess and disposition Prior Visits: Notes and results from previous visits were reviewed. Progress Notes: CXR : NAD, as read by JB On reevaluation, patient reports improvement of symptoms, denies any chest pain or SOB. On exam, patient remains awake alert and oriented 3 in no acute distress. Speaking in full sentences, breathing easy and unlabored. Of note, patient is requesting for a refill Rx for his enalapril 10 mg, which he takes for his hypertension, states that he ran out of it. Reports no headache, dizziness, chest pain, shortness of breath. Advised to follow up with primary care physician or the clinic in 1-2 days without fail. Advised to take medication as prescribed. Return to the emergency room at any time for any new or worsening symptoms. Patient states he fully agrees with and understands discharge instructions. States that he agrees with the plan and disposition. Verbalized and repeated discharge instructions and plan. I have given the patient opportunity to ask any additional questions. - RAD Interpretation Radiology Orders: 01/01/19 21:57 CHEST TWO VIEWS (PA/LAT) [RAD] Stat - Medication Orders Current Medication Orders: Discontinued Medications Albuterol/Ipratropium (Duoneb 3 Mg/0.5 Mg (3 Ml) Ud) 3 ml IH STAT STA Stop: 01/01/19 21:58 Last Admin: 01/01/19 22:12 Dose: 3 ml <Angelika Davenport PA-C - Last Filed: 01/01/19 23:19> - PA / SHIPWRIGHT HELPER / Resident Statement TOSIN has reviewed & agrees with the documentation as recorded. <Charly Cain - Last Filed: 01/01/19 22:52> - PA / SHIPWRIGHT HELPER / Resident Statement TOSIN has reviewed & agrees with the documentation as recorded. - Scribe Statement The provider has reviewed the documentation as recorded by the Scribe Santos German Provider Scribe Attestation: All medical record entries made by the Scribe were at my direction and personally dictated by me. I have reviewed the chart and agree that the record accurately reflects my personal performance of the history, physical exam, medical decision making, and the department course for this patient. I have also personally directed, reviewed, and agree with the discharge instructions and disposition. <Angelika Davenport PA-C - Last Filed: 01/01/19 23:19> Disposition/Present on Arrival <Charly Cain - Last Filed: 01/01/19 22:52> - Present on Arrival Any Indicators Present on Arrival: No History of DVT/PE: No History of Uncontrolled Diabetes: No Urinary Catheter: No History of Decub. Ulcer: No History Surgical Site Infection Following: None - Disposition Have Diagnosis and Disposition been Completed?: Yes Disposition Time: 23:00 Patient Plan: Discharge <Angelika Davenport PA-C - Last Filed: 01/01/19 23:19> - Disposition Diagnosis: Bronchitis Disposition: HOME/ ROUTINE Patient Problems: Current Active Problems Problem Status Onset Bronchitis Acute Condition: STABLE Discharge Instructions (ExitCare): Acute Bronchitis Additional Instructions: Thank you for letting us take care of you today. You were treated for bronchitis. The emergency medical care you received today was directed at your acute symptoms. If you were prescribed any medication, please fill it and take as directed. It may take several days for your symptoms to resolve. Return to [facility] Emergency Department if your symptoms worsen, do not improve, or if you have any other problems. Please contact your doctor in 2 days for re-evaluation and follow up / or call one of the physicians/clinics you have been referred to that are listed on the Patient Visit Information form that is included in your discharge packet. Bring any paperwork you were given at discharge with you along with any medications you are taking to your follow up visit. Our treatment cannot replace ongoing medical care by a primary care provider (PCP) outside of the emergency department. Thank you for allowing [email or web address] to be part of your care today. If you had an X-Ray : A Radiologist will review the ED reading if any change in treatment is needed we will contact you. Prescriptions: Albuterol 0.083% [Albuterol Sulfate 3 Ml] 3 ml IH Q4 #100 neb Enalapril Maleate [Vasotec] 110 mg PO DAILY #30 tab Guaifenesin 400 mg PO QID #20 tablet Nebulizer [Aeroeclipse II] 1 each MC DAILY #1 each Referrals: PCP,NO [Primary Care Provider] - Follow up with primary [facility] [place] - Follow up with primary Forms: [employer] (Albanian), WORK NOTE
[2019-01-01 23:06] VITALS: BP 135/74; PULSE 68; RESP 16; O2SAT 100
--- NOTE | 2019-01-02 09:46 | RAD ---
Date of service: 01/01/2019 HISTORY: cough COMPARISON: 04/19/2017 TECHNIQUE: Chest PA and lateral views FINDINGS: LUNGS: No active pulmonary disease. PLEURA: No significant pleural effusion identified. No pneumothorax apparent. CARDIOVASCULAR: No aortic atherosclerotic calcification present. Normal cardiac size. No pulmonary vascular congestion. OSSEOUS STRUCTURES: No significant abnormalities. VISUALIZED UPPER ABDOMEN: Normal. OTHER FINDINGS: None. IMPRESSION: No active disease.
== END 2019-01-01 23:32 | disposition home or self-care (01) ==
LOC: ED 20:57
DX: J40 Bronchitis, not specified as acute or chronic (principal); I10 Essential (primary) hypertension

== ENCOUNTER 2019-01-12 11:29 | Emergency (ER) | payer MEDICAID ==
[2019-01-12 11:40] VITALS: BMI 32.5
[2019-01-12 11:45] VITALS: RESP 18; TEMP 98.3
--- NOTE | 2019-01-12 12:38 | ED PDOC ---
Arrival/HPI - General Chief Complaint: Upper Extremity Problem/Injury Time Seen by Provider: 01/12/19 11:34 Historian: Patient - History of Present Illness Narrative History of Present Illness (Text): 58 year old male, whose past medical history includes hypertension, tendonitis and abdominal hernia surgery, presents to the ED complaining of right side shoulder to for the past week. Patient reports pain is intermittent and feels like a pinch/strain. Patient reports he was diagnosed with a right labrum injury in the past and notes that his symptoms feel similiar to his previous labrum tear. Patient denies any fevers, chills, headache, dizziness, chest pain, shortness of breath, dyspnea on exertion, cough, nausea, vomiting, diarrhea, back pain, neck pain, urinary/bowel changes, or any other complaints. Time/Duration: 1 week Symptom Onset: Gradual Symptom Course: Intermittent Activities at Onset: Light Context: Home Past Medical History - Provider Review Nursing Documentation Reviewed: Yes - Past History Past History: No Previous - Infectious Disease Hx of Infectious Diseases: None - Tetanus Immunization Tetanus Immunization: Up to Date - Past Medical History Past Medical History: No Previous - Cardiac Hx Cardiac Disorders: No - Pulmonary Hx Respiratory Disorders: No - Neurological Hx Neurological Disorder: No - HEENT Hx HEENT Disorder: No - Renal Hx Renal Disorder: No - Endocrine/Metabolic Hx Endocrine Disorders: No - Hematological/Oncological Hx Blood Disorders: No - Integumentary Hx Dermatological Disorder: No - Musculoskeletal/Rheumatological Hx Musculoskeletal Disorders: Yes Other/Comment: bursitis - Gastrointestinal Hx Gastrointestinal Disorders: No - Genitourinary/Gynecological Hx Genitourinary Disorders: No - Psychiatric Hx Depression: No Hx Substance Use: No - Past Surgical History Past Surgical History: No Previous - Anesthesia Hx Anesthesia: Yes Hx Anesthesia Reactions: No Hx Malignant Hyperthermia: No - Suicidal Assessment Feels Threatened In Home Enviroment: No Family/Social History - Physician Review Nursing Documentation Reviewed: Yes Family/Social History: Unknown Family HX Smoking Status: Never Smoked Hx Alcohol Use: Yes (wine) Hx Substance Use: No Hx Substance Use Treatment: No Allergies/Home Meds Allergies/Adverse Reactions: Allergies Sulfa (Sulfonamide Antibiotics) Adverse Reaction (Verified 01/12/19 11:40) ANAPHYLAXIS Review of Systems - Physician Review All systems were reviewed & negative as marked: Yes - Review of Systems Constitutional: Normal. absent: Fatigue, Fevers Eyes: Normal. absent: Vision Changes ENT: Normal. absent: Hearing Changes, Rhinorrhea, Epistaxis Respiratory: Normal. absent: SOB, Cough Cardiovascular: absent: Chest Pain Gastrointestinal: absent: Abdominal Pain, Stool Changes, Constipation, Diarrhea, Vomiting, Appetite Changes Genitourinary Male: absent: Dysuria, Hematuria Musculoskeletal: Arthralgias (shoulder pain), Myalgias (r shoulder to lower chest). absent: Back Pain, Neck Pain Skin: absent: Rash Neurological: absent: Headache, Dizziness Endocrine: absent: Diaphoresis Hemo/Lymphatic: absent: Adenopathy Psychiatric: absent: Anxiety, Depression Physical Exam Vital Signs Reviewed: Yes Vital Signs Temp Pulse Resp BP Pulse Ox 01/12/19 11:44 98.3 F 81 18 145/79 96 Temperature: Afebrile Blood Pressure: Normal Pulse: Regular Respiratory Rate: Normal Appearance: Positive for: Well-Appearing, Non-Toxic, Comfortable Pain Distress: None Mental Status: Positive for: Alert and Oriented X 3 - Systems Exam Head: Present: Atraumatic, Normocephalic Pupils: Present: PERRL. No: Sluggish Extroacular Muscles: Present: EOMI. No: Gaze Palsy Conjunctiva: Present: Normal. No: Injected Ears: Present: Normal, NORMAL TM, Normal Canal. No: Erythema Mouth: Present: Moist Mucous Membranes Neck: Present: Normal Range of Motion. No: Meningeal Signs, MIDLINE TENDERNESS Respiratory/Chest: Present: Clear to Auscultation, Good Air Exchange. No: Respiratory Distress, Accessory Muscle Use, Wheezes Cardiovascular: Present: Regular Rate and Rhythm, Normal S1, S2. No: Murmurs Abdomen: No: Tenderness, Distention, Peritoneal Signs Back: Present: Normal Inspection. No: CVA Tenderness, Midline Tenderness Upper Extremity: Present: Normal Inspection, Normal ROM, NORMAL PULSES, Neurovascularly Intact, Capillary Refill < 2s. No: Cyanosis, Edema, Tenderness, Swelling, Erythema, Temperature Abnormalties, Deformity Lower Extremity: Present: Normal Inspection, NORMAL PULSES, Neurovascularly Intact, Capillary Refill < 2 s. No: Edema, CALF TENDERNESS, Tenderness, Swell ing, Temperature Abnormalties Neurological: Present: GCS=15, CN II-XII Intact, Speech Normal Skin: Present: Warm, Dry, Normal Color. No: Rashes Psychiatric: Present: Alert, Oriented x 3, Normal Insight, Normal Concentration Medical Decision Making ED Course and Treatment: 01/12/19 12:57 Impression: 58 year old male who presents to the ED with right side intermittent rib pain. Not associated with deep breaths or abdominal pain. Radiates from his right shoulder. Intermittent pain, non-pleurtic in nature. No back pain. No fall or trauma. No headache, constipation or diarrhea. No RUQ pain. No pain on palpation to chest or abdomen. No rash. Likely MSK type pain. Heart score: Age: 1 RF: 0 Trop: pending EK Story: 0 Low pretest well, will dimer out. Plan: -- Labs -- Chest X-Ray -- Right shoulder X-Ray -- EKG -- Reassess and disposition Prior Visits: Notes and results from previous visits were reviewed. Progress Notes: 01/12/19 14:17 Shoulder X-Ray IMPRESSION: No acute findings. Chest X-Ray IMPRESSION: No focal consolidation identified. 01/12/19 15:05 EKG: NSR @ 62 bpm. No STEMI. labs, imaging, dimer negative 01/12/19 15:37 pt requesting xanax for the road: He denies any etoh use today or drinking, no signs of withdrawal, no SI or HI will rx and d/c home with return indications and f/u, pt agreeable to plan. - Scribe Statement The provider has reviewed the documentation as recorded by the Ross Page Provider Scribe Attestation: All medical record entries made by the Scribe were at my direction and personally dictated by me. I have reviewed the chart and agree that the record accurately reflects my personal performance of the history, physical exam, medical decision making, and the department course for this patient. I have also personally directed, reviewed, and agree with the discharge instructions and disposition. Disposition/Present on Arrival - Present on Arrival Any Indicators Present on Arrival: No History of DVT/PE: No History of Uncontrolled Diabetes: No Urinary Catheter: No History of Decub. Ulcer: No History Surgical Site Infection Following: None - Disposition Have Diagnosis and Disposition been Completed?: Yes Diagnosis: Muscle pain Disposition: HOME/ ROUTINE Disposition Time: 14:31 Patient Problems: Current Active Problems Problem Status Onset Muscle pain Acute Condition: STABLE Discharge Instructions (ExitCare): Muscle and Bone Pain (DC) Additional Instructions: SIXTO BOYD, thank you for letting us take care of you today. Your provider was Christopher Palacios and you were treated for arm and abdominal problem ( right ). The emergency medical care you received today was directed at your acute symptoms. If you were prescribed any medication, please fill it and take as directed. It may take several days for your symptoms to resolve. Return to the Emergency Department if your symptoms worsen, do not improve, or if you have any other problems. Please contact your doctor or call one of the physicians/clinics you have been referred to that are listed on the Patient Visit Information form that is included in your discharge packet. Bring any paperwork you were given at discharge with you along with any medications you are taking to your follow up visit. Our treatment cannot replace ongoing medical care by a primary care provider outside of the emergency department. Thank you for allowing the [facility] team to be part of your care today. If you had an X-Ray or CT scan: A Radiologist will review the ED reading if any change in treatment is needed we will contact you. If you had a blood, urine, or wound culture: It will take several days for the results, if any change in treatment is needed we will contact you. If you had an STI test: It will take 48 hours for the results. Please call after 1 week if you have not heard back. Referrals: Cole Floyd MD [Staff Provider] - Follow up with primary Sunday Oropeza MD [Staff Provider] - Follow up with primary [facility] [Outside] - Follow up with primary [facility] [place] [Outside] - [place] up [place] [facility] [place] - Follow up with primary Forms: [facility] (Korean)
[2019-01-12 13:30] LABS: BASO # 0.02 K/mm3 (0.0-2.0); BASO % 0.2 % (0.0-3.0); EOS # 0.2 (0.0-0.7); HEMOGLOBIN 14.5 g/dL (14.0-18.0); LYMPH # 2.2 (1.2-3.4); LYMPH % 27.6 % (22.0-35.0); MEAN CELL VOLUME 90.1 fl (80.0-105.0); MEAN CORPUSCULAR HEMOGLOBIN 29.4 pg (25.0-35.0); MEAN CORPUSCULAR HGB CONC 32.7 g/dl (31.0-37.0); MEAN PLATELET VOLUME 9.8 fl (7.0-11.0); MONO # 0.5 (0.1-0.6); MONO % 6.6 % (1.0-6.0); RBC 4.93 10^6/uL (3.5-6.1); RED CELL DISTRIBUTION WIDTH 13.2 % (11.5-14.5)
[2019-01-12 13:39] LABS: ALB/GLOB RATIO 1.3 (1.1-1.8); ALBUMIN 4.3 g/dL (3.0-4.8); ALT/SGPT 14 U/L (7-56); AST/SGOT 29 U/L (17-59); BLOOD UREA NITROGEN 20 mg/dL (7-21); GFR NON-AFRICAN AMERICAN > 60; LIPASE 41 U/L (23-300)
[2019-01-12 13:50] LABS: TROPONIN I < 0.01 ng/mL
--- NOTE | 2019-01-12 14:05 | RAD ---
Date of service: 01/12/2019 PROCEDURE: Radiographs of the Right Shoulder HISTORY: r sholder pain COMPARISON: No prior. TECHNIQUE: 3 views obtained. FINDINGS: BONES: Normal. No fracture. JOINTS: Mild degenerative changes in the acromioclavicular joint. SOFT TISSUES: Normal. OTHER FINDINGS: None. IMPRESSION: No acute findings
--- NOTE | 2019-01-12 14:14 | RAD ---
HISTORY: r shoulder pain COMPARISON: Chest x-ray performed 01/01/19 TECHNIQUE: Chest PA and lateral, 2 views FINDINGS: LUNGS: No focal consolidation. Please note that chest x-ray has limited sensitivity for the detection of pulmonary masses. PLEURA: No significant pleural effusion identified. No definite pneumothorax . CARDIOVASCULAR: Heart size appears top normal. Atherosclerotic calcifications of the aorta. OSSEOUS STRUCTURES: Degenerative changes of the spine. VISUALIZED UPPER ABDOMEN: Unremarkable. OTHER FINDINGS: None. IMPRESSION: No focal consolidation identified.
[2019-01-12 15:21] VITALS: BP 138/78; PULSE 79; O2SAT 100
--- NOTE | 2019-01-13 07:48 | CARD ---
APPROVED REPORT Date of service: 01/12/2019 EKG Measurement Heart [id number] <Conclusion> Normal sinus rhythm Normal ECG
== END 2019-01-12 16:00 | disposition home or self-care (01) ==
LOC: ED 11:29
DX: M79.10 Myalgia, unspecified site (principal); I10 Essential (primary) hypertension